=== PATIENT | female | born 1980 | race Caucasian/White ===

== ENCOUNTER 2024-09-06 11:02 | Emergency (ER) | payer OTHER, SELFPAY ==
[2024-09-06 11:04] VITALS: BP 126/77
--- NOTE | 2024-09-06 12:23 | ED.GENMED ---
History of Present Illness
General
Chief Complaint: Urinary Symptoms
Time Seen by Provider: 09/06/24 11:40
History of Present Illness
History of Present Illness:
44-year-old female without significant past medical history presenting to the emergency department for concern of UTI and abdominal pain. Patient reports that yesterday she started to have a UTI symptoms including frequency and urgency. Reports
history of UTI in the past. This morning she started to develop right pelvic pain. She reports history of ruptured ovarian cyst and felt that her pain was similar to this. She went to urgent care this morning and was told that she had a 'bad'
UTI, was prescribed Bactrim. She took the first dose this morning. Pain in the right pelvic region was reported as a 10 out of 10 prior to arrival, now a 4 out of 10. She reports that the pain comes and goes. Reports some nausea without
vomiting. Denies changes in her stool. Reports history of , otherwise denies abdominal surgeries. Denies chest pain or difficulty breathing. Denies additional acute medical complaints.
Phy Exam
Physical Exam
Physical Exam:
General: Well-appearing, no clinical signs of dehydration, nontoxic and in no acute distress
HEENT: protecting airway
Neck: appears supple
CV: Normal heart rate, regular rhythm
Resp: No accessory muscle use, no increased work of breathing, lungs clear to auscultation bilaterally
Abd: Mild right pelvic pain. No McBurney's point tenderness. No CVA tenderness
Extremities: No deformities, no swelling
Neuro: alert, no focal neurologic deficit
: deferred
Rectal: deferred
Psych: Normal affect
Skin: Intact
Course
Orders/Labs/Results
Orders:
Orders
09/06/24 12:20
0.9% Sodium Chloride 1000 ml [Nss] 1,000 ml IV BOLUS
Ketorolac [Toradol] 15 mg IV NOW STA
Test Result ONCE
US Pelvis W Transvag Combined Urgent
Comment:
Reason For Exam: RlQ pain, hx cysts
09/06/24 12:47
Complete Blood Count/With Diff Urgent
Comprehensive Metabolic Panel Urgent
HCG, Urine Qualitative Screen Urgent
Date Specimen was Collected: 09/06/24
Time Specimen was Collected: 12:43
Urinalysis Reflex To Culture Urgent
Specimen Description:
Date Specimen was Collected: 09/06/24
Time Specimen was Collected: 12:43
Urine Microscopic Reflex Cult Urgent
Urine Culture Urgent
ALYSSA Source: U
Specimen Description:
Date Specimen was Collected: 09/06/24
Time Specimen was Collected: 12:43
Abnormal Lab Results
09/06/24
12:47
WBC 12.9 H 10^3/uL
(4.8-10.8)
RBC 4.08 L 10^6/uL
(4.20-5.40)
Hct 36.7 L %
(37.0-47.0)
Abs Immat Gran (auto) 0.1 H 10^3/uL
(0-0.05)
Absolute Neuts (auto) 10.7 H 10^3/uL
(1.4-6.5)
Neutrophils % 83.4 H %
(42.2-75.2)
Lymphocytes % 12.5 L %
(20.5-51.1)
Sodium 133 L mmol/L
(135-145)
Creatinine 0.5 L mg/dL
(0.6-1.0)
Total Bilirubin 1.8 H mg/dl
(0.2-1.3)
Alkaline Phosphatase 36 L U/L
(38-126)
Urine Ketones 1+ A
(Negative)
Ur Occult Blood Reflex 2+ A
(Negative)
Leukocyte Esterase Rfl 1+ A
(Negative)
Urine RBC 3-6 A /HPF
(0-2)
Urine WBC (Reflex) 11-15 A /HPF
(0-5)
Urine Bacteria (Reflex) Few A
(Negative)
09/06/24 12:47
09/06/24 12:47
Vital Signs
Initial and Last Documented VS:
Initial Vital Signs
Temp Pulse Resp BP Pulse Ox
97.5 F 63 16 126/77 98
09/06/24 11:04 09/06/24 11:04 09/06/24 11:04 09/06/24 11:04 09/06/24 11:04
Last Documented Vital Signs
Temp Pulse Resp BP Pulse Ox
97.5 F 63 16 106/69 100
09/06/24 11:04 09/06/24 11:04 09/06/24 11:04 09/06/24 13:00 09/06/24 13:15
MDM/Problems Addressed
MDM/Problems Addressed:
44-year-old female presenting to the emergency department for urinary complaints and right pelvic pain. Vital signs on arrival are normal.
On exam, patient is well-appearing, no acute distress, nontoxic. Patient is urinary complaints appear consistent with UTI. Differential considerations for her present pain discomfort is ascending urinary tract infection versus developing
pyelonephritis. Given history of ovarian cyst in the past, ovarian cyst versus torsion is also consideration. Lower suspicion for appendicitis given location of pain, absence of additional GI symptoms or fever. At this time will proceed with
laboratory analysis, urinalysis, pelvic ultrasound. Toradol and Zofran administered for patient's symptoms.
14:50-urine is consistent with infection. Ultrasound shows a small ovarian cyst, without compromise to the ovary. At this time suspect again ascending urinary tract infection. Feel stable for discharge, remains hemodynamically stable. Advised
continued usage of the antibiotic she was prescribed. Urine culture sent. Strict return precautions communicated and patient verbalized understanding
*Critical Care Note
Total Time (30-74mins, 75-104mins- exclusive of procedures): Not Applicable
ED Attending Note
-
Portions of this chart may have been created with voice recognition software.� Occasional wrong word or��sound alike� substitutions may have occurred due to the inherent limitations of voice recognition software.
Discharge Plan
Departure
Prescriptions:
No Action
hydrocodone-acetaminophen 5-325 mg tablet
1 tab PO Q4H PRN (Reason: pain) Qty: 10 0RF
ibuprofen 600 mg tablet
600 mg PO Q6H PRN (Reason: pain) Qty: 20 0RF
Referrals:
Jesus Abel CRNP [Family Provider] -
Interventions
Interventions:
*Risk Screen - Suicide Last Done: 09/06/24 11:07
*General Assessment Last Done: 09/06/24 12:52
*Neglect/Abuse Screening Last Done: 09/06/24 11:07
*ED COVID-19 Vaccine History Last Done: 09/06/24 12:52
ED-Female Genitourinary Assessment Last Done: 09/06/24 12:53
Discharge Date and Time
Print Language: CITIZ[place]
[2024-09-06] MEDS: TORADOL 15 MG IV (12:45)
[2024-09-06] MEDS: NSS 1000 IV (12:46)
[2024-09-06 12:50] VITALS: BP 105/66
[2024-09-06 12:51] VITALS: BMI 18.2
[2024-09-06 12:54] LABS: % Basophils 0.2 % (0-2); % Eosinophils 0.2 % (0-6); % Immature Granulocytes 0.4 % (0-0.5); % Lymphocytes 12.5 % (20.5-51.1); % Monocytes 3.3 % (1.7-9.3); % Neutrophils 83.4 % (42.2-75.2); Absolute Immature Granulocytes 0.1 10^3/uL (0-0.05); Absolute Lymphocytes 1.6 10^3/uL (1.2-3.4); Absolute Monocytes 0.4 10^3/uL (0.1-0.6); Absolute Neutrophils 10.7 10^3/uL (1.4-6.5); Hematocrit 36.7 % (37.0-47.0); Hemoglobin 12.3 g/dL (12.0-16.0); Mean Corp Hgb Conc. 33.5 g/dL (33.0-37.0); Mean Corpuscular Hgb 30.1 pg (27.0-31.0); Mean Platelet Volume 10.1 fL (7.4-10.4); Nucleated Red Blood Cells % 0 %; Platelet Count 285 10^3/uL (130-400); Red Blood Cell Count 4.08 10^6/uL (4.20-5.40); Red Cell Dist. Width 12.8 % (11.5-14.5); White Blood Cell Count 12.9 10^3/uL (4.8-10.8)
[2024-09-06 13:00] VITALS: BP 106/69
[2024-09-06 13:03] LABS: HCG, Urine Qualitative Screen Negative
[2024-09-06 13:19] LABS: ALT (SGPT) 17 U/L (0-35); AST (SGOT) 23 U/L (14-36); Albumin 4.6 g/dl (3.5-5.0); Alkaline Phosphatase 36 U/L (38-126); Blood Urea Nitrogen 10 mg/dl (7-17); Calcium 9.1 mg/dl (8.4-10.2); Carbon Dioxide 22 mmol/L (22-30); Chloride 99 mmol/L (98-107); Estimated Creatinine Clearance 91 ml/min; Glucose 88 mg/dl (70-99); Potassium 4.3 mmol/L (3.5-5.1); Sodium 133 mmol/L (135-145); Total Bilirubin 1.8 mg/dl (0.2-1.3); Total Protein 6.9 g/dl (6.3-8.2); eGFR > 60.00
[2024-09-06 13:55] LABS: Urine Albumin Negative (Neg - Trace); Urine Bilirubin Negative (Negative); Urine Character Clear (Clear); Urine Color Straw; Urine Glucose Negative (Negative); Urine Ketone 1+ (Negative); Urine Leukocyte 1+ (Negative); Urine Nitrite Negative (Negative); Urine Occult Blood 2+ (Negative); Urine Specific Gravity 1.005 (<1.030); Urine Urobilinogen Negative (Neg - 1+)
[2024-09-06 14:06] LABS: Urine Bacteria Few (Negative)
[2024-09-06 15:31] VITALS: BP 98/64
== END 2024-09-06 15:32 | disposition home or self-care (01) ==
LOC: EMR 11:02
PROVIDERS: EMERGENCY PHYSICIAN Student in an Organized Health Care Education/Training Program; FAMILY PHYSICIAN Nurse Practitioner Family
DX: N39.0 Urinary tract infection, site not specified (principal)
CPT/HCPCS: 99284; 96374; 96361; 76830; 76856; 80053; 81003; 81015; 81025; 85025; 87086

== ENCOUNTER → 2024-09-17 14:19 | Outpatient (REF) | payer OTHER, SELFPAY | LOC: HWRAD 14:19 | PROVIDERS: ATTENDING PHYSICIAN Nurse Practitioner Family | DX: R59.1 Generalized enlarged lymph nodes (principal) | CPT/HCPCS: 76536 ==

== ENCOUNTER 2025-02-21 06:24 | Day surgery (SDC) | payer OTHER, SELFPAY | END 2025-02-21 09:39 | disposition home or self-care (01) | LOC: GI 06:24 | PROVIDERS: ATTENDING PHYSICIAN Internal Medicine Gastroenterology | DX: Z12.11 Encounter for screening for malignant neoplasm of colon (principal); D12.0 Benign neoplasm of cecum; K57.30 Diverticulosis of large intestine without perforation or abscess without bleeding; K64.8 Other hemorrhoids | CPT/HCPCS: 45380; 88305 ==